=== PATIENT | female | born 1985 | race African-American/Black ===

== ENCOUNTER 2021-09-26 14:08 | Emergency (ER) | payer OTHER ==
[~2021-09-26] VITALS: Ht 172.7 cm; Wt 91.2 kg
--- NOTE | ~2021-09-26 | EMS ---
[facility] [address] [place] [address] EMS Patient Care Report Name: JUANA RAMOS Room #: PRE M.R.#: [id number] Admission: Attend Phys: Discharge: Date of : [birth year] Report #: [id number] THIS REPORT FOR: //name// Report Transmitted: 09/26/2021 13:51 EMS Care Summary [place], [place]/[facility] Incident [id number] @ 09/26/2021 13:23 [address] / [address] [place] [address] Patient JUANA RAMOS Female, 35 Years 1985 Patient Address Patient History None Reported, Patient Allergies No known allergies, Patient Medications None Reported, Chief Complaint Strange and inexplicable behavior Disposition Transported No Lights/[place] Dis[place] Reason Altered Mental Status Transported To [facility] Narrative M36 dispatched to assist PD with a Welfare check. Arrival to the scene EMS finds patient with PD on the side of the road. Patient is laying down on the ground. Patient does not acknowledge EMS presence is GCS 13 and oriented to person. PD advises to EMS that the patient was found [place] on the [place] and that they noted the patient was acting erratically with changing mood and mentation. Patient is assisted to the standing and placed on the stretcher. [facility] [address] [place] [address] EMS Patient Care Report Name: JUANA RAMOS Room #: PRE Angelo.#: [id number] Admission: Attend Phys: Discharge: Date of : [birth year] Report #: [id number] Patient is disoriented but cooperative with EMS. Once inside the ambulance patient is placed on the monitor to obtain VS, and glucose check is conducted. During the glucose check patient becomes agitated and combative and becomes verbal and attempts to become physical with EMS personnel. Patient is placed in handcuffs by PD to the stretcher and EMS is able to verbally de-escalate the patient. Patient is noted to be hypertensive and tachycardic. Due to patient agitation and irritability no further interventions are conducted. Patient is transported to [facility] along with PD as precaution. Assessment conducted. Patient is uncooperative and noncombative. Patient will not allow EMS to further assess with a detailed assessment.. No life threatening injuries are noted. Arrival at the receiving facility patient is offloaded and taken to ED room 2. RN is given report and signatures are obtained. Transfer of care is completed. PD signs for patient transport. M36 returns to service. Initial Vitals @13:45P: 144,R: 18,BP: 173/106,Pain: 0/10,GCS: 13,Glucose: 112,CO: 6,SpO2: 95,Revised Trauma: 12, @13:55P: 120,R: 18,BP: 158/123,Pain: 0/10,GCS: 15,SpO2: 99,Revised Trauma: 12, Assessments @14:01MENTAL:Confused,Time Oriented,Person Oriented,SKIN:No Abnormalities,HEENT:Head/Face: No Abnormalities,Eyes: No Abnormalities,Neck/Airway: No Abnormalities,LUNG SOUNDS:General: No Abnormalities,Left Upper: No Abnormalities,Right Upper: No Abnormalities,Left Lower: No Abnormalities,Right Lower: No Abnormalities,ABDOMEN:General: No Abnormalities,Left Upper: No Abnormalities,Right Upper: No Abnormalities,Left Lower: No Abnormalities,Right Lower: No Abnormalities,PELVIS//GI:No Abnormalities,EXTREMITIES:Left Arm: No Abnormalities,Right Arm: No Abnormalities,Left Leg: No Abnormalities,Right Leg: No Abnormalities,PULSE:NEURO:No Abnormalities, Impression Altered Mental Status Procedures @13:42 ALS Assessment Response: UnchangedSucceeded Timeline 13:22,Call Received 13:22,Dispatch Notified 13:23,Dispatched [address] [address] EMS [facility]: PRE ER M.R.#: [id number] Admission: Attend Phys: Discharge: Date of : [birth year] Report #: [id number] 13:25,En Route 13:39,On Scene 13:41,At Patient 13:42,ALS Assessment,Response: UnchangedSucceeded, 13:45,BP: 173/106 M,PULSE: 144,RR: 18 R,SPO2: 95 Ox,ETCO2: ,B,PAIN: 0,GCS: 13, 13:55,BP: 158/123 M,PULSE: 120,RR: 18 R,SPO2: 99 Ox,ETCO2: ,BG: ,PAIN: 0,GCS: 15, 13:56,Depart Scene 14:05,At Destination 14:25,Call Closed Disclaimer v1.1 Copyright 202 [employer] This EMS Care Summary contains data elements from the applicable legal record (which may be displayed differently). It is designed to provide pertinent information for the following purposes: continuity of care, clinical quality, and state data reporting. The complete legal record is available to ED staff and administrators of the receiving hospital in [employer] Patient Tracker. All data is provided "as is."
[2021-09-26 14:47] LABS: HEMATOCRIT 38.1 % (37.0-47.0); HEMOGLOBIN 12.2 gm/dL (12.0-15.0); MCH 27.5 pg (26.0-34.0); MCHC 31.9 g/dL (28.0-37.0); MCV 86.3 fL (80.0-100.0); RBC 4.42 mil/uL (4.20-5.00); RDW 15.1 % (10.5-14.5); WBC 6.6 thou/uL (4.0-11.0)
[2021-09-26 14:51] LABS: ANION GAP 12 mmol/L (7-16); BUN 10 mg/dL (7-18); CALCIUM 8.8 mg/dL (8.5-10.1); CHLORIDE 106 mmol/L (98-107); CO2 23 mmol/L (21-32); CREATININE 1.1 mg/dL (0.6-1.0); GLUCOSE 110 mg/dL (74-106); SODIUM 141 mmol/L (136-145)
[2021-09-26 15:01] LABS: ALBUMIN 3.3 g/dL (3.4-5.0); MAGNESIUM 1.8 mg/dL (1.8-2.4); SALICYLATE < 2.8 mg/dL (2.8-20.0); SGOT 14 U/L (15-37); SGPT 18 U/L (14-59); TOTAL BILIRUBIN 0.4 mg/dL (0.2-1.0); TOTAL PROTEIN 7.8 g/dL (6.4-8.2)
[2021-09-26 16:45] LABS: URINE BILIRUBIN NEGATIVE (Negative); URINE BLOOD NEGATIVE (Negative); URINE CLARITY CLEAR; URINE COLOR YELLOW; URINE GLUCOSE-RANDOM* NEGATIVE (Negative); URINE KETONES NEGATIVE (Negative); URINE LEUKOCYTES-REFLEX NEGATIVE (Negative); URINE NITRITE-REFLEX NEGATIVE (Negative); URINE PROTEIN (DIPSTICK) 2+ (Negative); URINE SPECIFIC GRAVITY 1.025 (1.005-1.035); URINE UROBILINOGEN 0.2 E.U./dl (0.2-1.0)
[2021-09-26 16:53] LABS: AMP/METHAMP Negative (Negative); BARBITURATES Negative (Negative); BENZODIAZEPINES Negative (Negative); COCAINE Negative (Negative); METHADONE Negative (Negative); OPIATES Negative (Negative); PCP Negative (Negative)
[2021-09-26 17:01] LABS: CASTS None Seen /LPF (None Seen); FINE GRANULAR CASTS 0-3 Few /LPF (None Seen)
[2021-09-26 17:02] LABS: BACTERIA-REFLEX 1-9 Few /HPF (None Seen); CRYSTALS None Seen /LPF (None Seen); SQUAMOUS 4-10 Moderate /LPF (0-3); URINE RBC 1-2 Rare /HPF (NONE SEEN); URINE WBC-REFLEX 0-5 Rare /HPF (0-5)
[2021-09-26 17:30] VITALS: BP 165/100
--- NOTE | 2021-09-27 07:48 | EKG ---
[address] [address] ELECTROCARDIOGRAM REPORT Name: JUANA RAMOS Room #: [facility] MUNA Engel#: [id number] Admission: 09/26/21 Attend Phys: Discharge: 09/26/21 Date of : 89 Report #: [id number] [facility] ED Test Date: 2021-09-26 Test Time: 14:19:18 Pat Name: JUANA RAMOS Department: Room: Gender: F Computer Trainer: : 1985 Requested By: Mari Loya Order Number: [id number] MD: Rickey Baires Measurements Intervals [place] Rate: 124 P: 64 MT: 150 QRS: 59 QRSD: 86 T: -42 QT: 317 QTc: 456 Interpretive Statements Sinus tachycardia Nonspecific T abnormalities, inferior leads No previous ECG available for comparison Electronically Signed On 09-27-2021 7:48:22 [employer]ITTING MACHINE OPERATOR by Rickey Baires [email or web address] <ELECTRONICALLY SIGNED> By: Rickey Baires MD, [facility] 09/27/21 0748 [id number] 1419 Rickey Baires MD, FACC /EPI
== END 2021-09-26 17:30 | disposition home or self-care (01) ==
LOC: ER 14:08
PROVIDERS: Nurse Practitioner Family
DX: F10.129 Alcohol abuse with intoxication, unspecified (principal); I10 Essential (primary) hypertension; E87.6 Hypokalemia; R80.9 Proteinuria, unspecified; Z59.00 Homelessness unspecified; Y90.9 Presence of alcohol in blood, level not specified